=== PATIENT | female | born 1940 | race Caucasian/White ===

== ENCOUNTER 2019-08-13 06:27 | Observation (INO) ==
[~2019-08-13 06:27] MED LIST: Bacitracin 50,000 UNIT, Polymyxin B Sulfate 500,000 UNIT, Sodium Chloride IRRigation 1,... IR ONE
[2019-08-13] MEDS ORDERED: Ipratropium/Albuterol Neb 3 ML IH ONE (06:30)
[2019-08-13] MEDS ORDERED: Lidocaine -MPF 2% 2 ML VIAL ONE (07:04)
[2019-08-13] MEDS ORDERED: *HR* Succinylcholine 200 MG/10 ML VIAL IVP ONE (07:04)
[2019-08-13] MEDS ORDERED: Ondansetron 4 MG/2 ML VIAL ONE ×2 (07:04→12:00)
[2019-08-13] MEDS ORDERED: *HR* Rocuronium Bromide 50 MG/5 ML VIAL ONE (07:04)
[2019-08-13] MEDS ORDERED: *HR* FentaNYL (PF) 100 MCG/2 ML VIAL ONE ×3 (07:04→11:00)
[2019-08-13] MEDS ORDERED: *HR* Propofol 200 MG/20 ML VIAL IVP ONE (07:04)
[2019-08-13] MEDS ORDERED: *HR* Phenylephrine 10 MG/ML VIAL ONE (07:11)
[2019-08-13] MEDS ORDERED: Clindamycin 900 MG/50 ML 900 MG/50 ML IV.SOLN IVPB ONE (07:11)
[2019-08-13] MEDS ORDERED: Ringers Solution, Lactated 1,000 ML IVC SCH (07:15)
[2019-08-13] MEDS ORDERED: Ondansetron 4 MG/2 ML VIAL IVP PRN ×2 (07:24→14:55)
[2019-08-13] MEDS ORDERED: *HR* Promethazine 25 MG/ML VIAL IVP PRN (07:24)
[2019-08-13] MEDS ORDERED: Heparin 1,000 UNITS/500 mL 500 ML ONE (07:40)
[2019-08-13] MEDS ORDERED: Albumin Human 5% 12.5 GM/250 ML IV.SOLN ONE ×2 (09:57→11:40)
[2019-08-13] MEDS ORDERED: *HR* HYDROMORPHONE 2 MG/ML VIAL ONE (11:58)
[2019-08-13] MEDS ORDERED: Neostigmine Methylsulfate 3 MG/3 ML SYRINGE ONE (12:36)
[2019-08-13] MEDS ORDERED: *HR* Labetalol 20 MG/4 ML SYRINGE IVP ONE (12:36)
[2019-08-13] MEDS: *HR* HYDROmorphone (PF) 1 MG/ML SYRINGE IVP PRN ×2 (13:32→13:38)
[2019-08-13] MEDS ORDERED: Acetaminophen 325 MG TABLET PO PRN (14:55)
[2019-08-13] MEDS ORDERED: Vitamin E 200 UNIT (90MG) CAPSULE PO PRN (14:55)
[2019-08-13] MEDS ORDERED: Naloxone 0.4 MG/ML INJ IVP PRN (14:55)
[2019-08-13] MEDS: Ringers Solution, Lactated 1,000 ML IVC SCH (17:18)
[2019-08-13] MEDS: Ergocalciferol (VIT D2) 50,000 UNIT (1.25MG) CAP PO SCH (17:33)
[2019-08-13] MEDS: Budesonide/Formoterol 80/4.5 1 PUFF INH IH SCH (20:24)
[2019-08-13] MEDS: *HR* OxyCODONE Immed Rel 5 MG TABLET PO PRN (21:32)
[2019-08-13] MEDS: cloNIDine HCL 0.1 MG TABLET PO SCH (21:33)
[2019-08-13] MEDS: Latanoprost 2.5 ML BOTTLE BOTH EYES SCH (21:33)
[2019-08-14] MEDS ORDERED: Clindamycin 600 MG/50 ML 600 MG/50 ML IV.SOLN IVPB ONE (00:30)
[2019-08-14] MEDS: Ringers Solution, Lactated 1,000 ML IVC SCH (00:43)
[2019-08-14] MEDS: *HR* OxyCODONE Immed Rel 5 MG TABLET PO PRN ×4 (05:07→18:19)
[2019-08-14] MEDS: Budesonide/Formoterol 80/4.5 1 PUFF INH IH SCH ×2 (07:47→19:43)
[2019-08-14] MEDS ORDERED: Albuterol 2.5 MG/3 ML NEBULIZER IH PRN (08:11)
[2019-08-14 08:49] LABS: Basophils % 0.2 %; Eosinophils % 0.2 %; Hematocrit 32.8 % (35.3-44.9); Hemoglobin 10.9 g/dL (11.5-15.4); Immature Granulocytes % 0.4 % (0-4); Lymphocytes # 1.6 K/mcL (0.6-4.6); Lymphocytes % 16.7 %; Mean Corpuscular HGB Conc 33.2 g/dL (31.6-35.5); Mean Corpuscular Hemoglobin 31.2 pg (28.0-33.3); Mean Platelet Volume 9.8 fL (9.4-12.4); Monocytes % 10.7 %; Neutrophils # 6.7 K/mcL (1.6-8.9); Platelet Count 159 K/mcL (140-400); Red Blood Count 3.49 M/mcL (3.82-4.97); Red Cell Distribution Width 12.7 % (11.5-14.5); Segmented Neutrophils % 71.8 %; White Blood Count 9.3 K/mcL (4.3-11.1)
[2019-08-14 09:09] LABS: BUN/Creatinine Ratio 18 (6-26); Blood Urea Nitrogen 16 mg/dL (8-23); Calcium 9.1 mg/dL (8.6-10.3); Carbon Dioxide 26 mEq/L (23-29); Chloride 104 mEq/L (98-107); Glucose 135 mg/dL (70-105); Osmolality,Calculated 283 (280-300); Potassium 4.2 mEq/L (3.5-5.1); Sodium 135 mEq/L (136-145); eGFR For African Americans > 60 (> 60); eGFR For Non-African Americans > 60 (> 60)
[2019-08-14] MEDS: Valsartan 160 MG TABLET PO SCH (09:32)
[2019-08-14] MEDS: cloNIDine HCL 0.1 MG TABLET PO SCH ×2 (09:32→20:18)
[2019-08-14] MEDS: Aspirin Enteric Coated 81 MG Tablet PO SCH (09:32)
[2019-08-14] MEDS: Spironolactone 25 MG TABLET PO SCH (09:32)
[2019-08-14] MEDS: Loratadine 10 MG TABLET PO SCH (09:33)
[2019-08-14] MEDS: Albuterol 2.5 MG/3 ML NEBULIZER IH SCH ×4 (13:11→19:43)
[2019-08-14] MEDS: Acetaminophen 325 MG TABLET PO SCH (16:51)
[2019-08-14] MEDS: Latanoprost 2.5 ML BOTTLE BOTH EYES SCH (20:18)
[2019-08-15] MEDS: Albuterol 2.5 MG/3 ML NEBULIZER IH SCH ×7 (00:35→23:47)
[2019-08-15 01:08] LABS: Basophils % 0.2 %; Eosinophils % 0.2 %; Hematocrit 31.5 % (35.3-44.9); Hemoglobin 10.4 g/dL (11.5-15.4); Immature Granulocytes % 0.8 % (0-4); Lymphocytes # 2.6 K/mcL (0.6-4.6); Lymphocytes % 21.5 %; Mean Corpuscular Hemoglobin 31.4 pg (28.0-33.3); Mean Corpuscular Volume 95.2 fL (83.0-100.0); Mean Platelet Volume 9.5 fL (9.4-12.4); Monocytes # 1.4 K/mcL (0.0-1.3); Monocytes % 11.9 %; Neutrophils # 7.9 K/mcL (1.6-8.9); Platelet Count 148 K/mcL (140-400); Red Blood Count 3.31 M/mcL (3.82-4.97); Red Cell Distribution Width 12.5 % (11.5-14.5); Segmented Neutrophils % 65.4 %
[2019-08-15 01:26] LABS: BUN/Creatinine Ratio 18 (6-26); Blood Urea Nitrogen 18 mg/dL (8-23); Calcium 9.1 mg/dL (8.6-10.3); Carbon Dioxide 25 mEq/L (23-29); Chloride 103 mEq/L (98-107); Glucose 124 mg/dL (70-105); Osmolality,Calculated 277 (280-300); Platelet Estimate Normal (Normal); Potassium 4.3 mEq/L (3.5-5.1); Reactive Lymphocytes Present (Not Present); Sodium 132 mEq/L (136-145); eGFR For African Americans > 60 (> 60); eGFR For Non-African Americans 55 (> 60)
[2019-08-15] MEDS: Acetaminophen 325 MG TABLET PO SCH ×5 (03:02→23:50)
[2019-08-15] MEDS: Budesonide/Formoterol 80/4.5 1 PUFF INH IH SCH ×2 (07:35→19:55)
[2019-08-15] MEDS: Aspirin Enteric Coated 81 MG Tablet PO SCH (09:23)
[2019-08-15] MEDS: Valsartan 160 MG TABLET PO SCH (09:23)
[2019-08-15] MEDS: *HR* OxyCODONE Immed Rel 5 MG TABLET PO PRN (09:23)
[2019-08-15] MEDS: Loratadine 10 MG TABLET PO SCH (09:25)
[2019-08-15] MEDS: cloNIDine HCL 0.1 MG TABLET PO SCH (09:25)
[2019-08-15] MEDS: Spironolactone 25 MG TABLET PO SCH (09:25)
[2019-08-15] MEDS: Ringers Solution, Lactated 1,000 ML IVC SCH (09:57)
[2019-08-15] MEDS: 0.9 % Sodium Chloride 1,000 ML IV SCH ×2 (10:47→23:50)
[2019-08-15] MEDS: Metoclopramide 10 MG in 0.9 % Sodium Chloride 50 ML IVPB SCH ×3 (12:06→23:50)
[2019-08-15] MEDS ORDERED: cloNIDine HCL 0.1 MG TABLET PO SCH ×3 (14:33→21:00)
[2019-08-15 14:38] LABS: Bilirubin,Urine Negative (Negative); Blood,Urine Negative (Negative); Clarity,Urine Cloudy (Clear); Color,Urine Dark Yellow (Yellow); Glucose,Urine (UA) Normal (Normal); Ketones,Urine Trace mg/dL (Negative); Leukocyte Esterase,Urine Moderate (Negative); Nitrite,Urine Negative (Negative); Protein,Urine Trace mg/dL (Neg-Trace); Specific Gravity,Urine 1.019 (1.010-1.025); Urobilinogen,Urine Normal (Normal)
[2019-08-15 14:42] LABS: Hyaline Casts,Urine None Seen per lpf (None-Few); RBC,Urine 0-3 per hpf (0-3); Squamous Epithelial Cell,Urine Many per lpf (None-Few)
[2019-08-15] MEDS ORDERED: Spironolactone 25 MG TABLET PO SCH (14:42)
[2019-08-15] MEDS ORDERED: Valsartan 160 MG TABLET PO SCH (14:42)
[2019-08-15 14:59] LABS: Bacteria,Urine Many per hpf (None-Few)
[2019-08-15] MEDS: Sennosides/Docusate Sodium TABLET PO SCH (20:41)
[2019-08-15] MEDS: Latanoprost 2.5 ML BOTTLE BOTH EYES SCH (20:46)
[2019-08-16] MEDS: Ringers Solution, Lactated 1,000 ML IVC SCH (00:03)
[2019-08-16] MEDS: Albuterol 2.5 MG/3 ML NEBULIZER IH SCH ×2 (03:49→07:50)
[2019-08-16] MEDS: Acetaminophen 325 MG TABLET PO SCH ×4 (05:14→22:33)
[2019-08-16] MEDS: Metoclopramide 10 MG in 0.9 % Sodium Chloride 50 ML IVPB SCH (05:14)
[2019-08-16 06:34] LABS: Basophils % 0.1 %; Eosinophils # 0.1 K/mcL (0.0-0.6); Eosinophils % 1.6 %; Hematocrit 26.6 % (35.3-44.9); Immature Granulocytes % 0.8 % (0-4); Lymphocytes # 1.5 K/mcL (0.6-4.6); Lymphocytes % 17.2 %; Mean Corpuscular HGB Conc 33.1 g/dL (31.6-35.5); Mean Corpuscular Volume 96.7 fL (83.0-100.0); Mean Platelet Volume 10.1 fL (9.4-12.4); Monocytes # 1.6 K/mcL (0.0-1.3); Monocytes % 18.6 %; Neutrophils # 5.4 K/mcL (1.6-8.9); Platelet Count 143 K/mcL (140-400); Red Blood Count 2.75 M/mcL (3.82-4.97); Red Cell Distribution Width 12.8 % (11.5-14.5); Segmented Neutrophils % 61.7 %; White Blood Count 8.8 K/mcL (4.3-11.1)
[2019-08-16 06:41] LABS: Hemoglobin 8.8 g/dL (11.5-15.4)
[2019-08-16 07:05] LABS: Calcium 9.2 mg/dL (8.6-10.3); Magnesium 1.8 mg/dL (1.6-2.6); Phosphorous 2.5 mg/dL (2.7-4.5); Potassium 4.5 mEq/L (3.5-5.1)
[2019-08-16 07:06] LABS: Platelet Estimate Decreased (Normal)
[2019-08-16] MEDS: Budesonide/Formoterol 80/4.5 1 PUFF INH IH SCH ×2 (07:50→20:26)
[2019-08-16] MEDS ORDERED: D5% in Water 1,000 ML IVC PRN (07:51)
[2019-08-16] MEDS ORDERED: Dextrose Gel 15 GM/37.5 ML TUBE PO PRN ×2 (07:51)
[2019-08-16] MEDS ORDERED: *HR* Dextrose 50 % in Water (Syg) 50 ML SYRINGE IVP PRN (07:51)
[2019-08-16] MEDS ORDERED: Ringers Solution, Lactated 1,000 ML IVC SCH ×2 (08:45)
[2019-08-16] MEDS ORDERED: cloNIDine HCL 0.1 MG TABLET PO SCH (09:00)
[2019-08-16] MEDS ORDERED: levoFLOXacin 750 MG/150 ML 750 MG/150 ML BAG IVPB SCH (09:00)
[2019-08-16 09:41] LABS: Iron < 10 mcg/dL (50-170); Transferrin 149 mg/dL (203-362)
[2019-08-16] MEDS: Loratadine 10 MG TABLET PO SCH (09:50)
[2019-08-16] MEDS: Sennosides/Docusate Sodium TABLET PO SCH ×2 (09:50→22:32)
[2019-08-16] MEDS: Aspirin Enteric Coated 81 MG Tablet PO SCH (09:50)
[2019-08-16] MEDS: *HR* OxyCODONE Immed Rel 5 MG TABLET PO PRN (09:54)
[2019-08-16] MEDS ORDERED: Albuterol 2.5 MG/3 ML NEBULIZER IH PRN (10:05)
[2019-08-16 13:30] LABS: Adenovirus Not Detected (Not Detect); Bordetella Pertussis Not Detected (Not Detect); Chlamydophila pneumoniae Not Detected (Not Detect); Coronavirus 229E Not Detected (Not Detect); Coronavirus HKU1 Not Detected (Not Detect); Coronavirus NL63 Not Detected (Not Detect); Coronavirus OC43 Not Detected (Not Detect); Human Metapneumovirus Not Detected (Not Detect); Human Rhinovirus/Enterovirus Not Detected (Not Detect); Influenza A Subtype 2009 H1 Not Detected (Not Detect); Influenza B Not Detected (Not Detect); Mycoplasma pneumoniae Not Detected (Not Detect); Parainfluenza Virus 1 Not Detected (Not Detect); Parainfluenza Virus 2 Not Detected (Not Detect); Parainfluenza Virus 3 Not Detected (Not Detect); Parainfluenza Virus 4 Not Detected (Not Detect); Respiratory Syncytial Virus Not Detected (Not Detect)
[2019-08-16] MEDS: Insulin LISPRO 300 UNITS/3 ML VIAL SQ SCH ×2 (14:31→17:46)
[2019-08-16] MEDS: Ergocalciferol (VIT D2) 50,000 UNIT (1.25MG) CAP PO SCH (14:47)
[2019-08-16] MEDS: Latanoprost 2.5 ML BOTTLE BOTH EYES SCH (22:34)
[2019-08-17] MEDS: Insulin LISPRO 300 UNITS/3 ML VIAL SQ SCH ×2 (00:55→07:04)
[2019-08-17 05:27] LABS: Basophils % 0.5 %; Eosinophils # 0.2 K/mcL (0.0-0.6); Eosinophils % 2.1 %; Hemoglobin 8.9 g/dL (11.5-15.4); Immature Granulocytes % 1.6 % (0-4); Lymphocytes # 1.1 K/mcL (0.6-4.6); Lymphocytes % 13.9 %; Mean Corpuscular Hemoglobin 30.8 pg (28.0-33.3); Mean Corpuscular Volume 93.4 fL (83.0-100.0); Mean Platelet Volume 9.3 fL (9.4-12.4); Monocytes # 1.6 K/mcL (0.0-1.3); Monocytes % 20.2 %; Neutrophils # 4.9 K/mcL (1.6-8.9); Platelet Count 193 K/mcL (140-400); Red Blood Count 2.89 M/mcL (3.82-4.97); Red Cell Distribution Width 12.8 % (11.5-14.5); Segmented Neutrophils % 61.7 %; White Blood Count 7.9 K/mcL (4.3-11.1)
[2019-08-17 05:47] LABS: Platelet Estimate Normal (Normal)
[2019-08-17 05:48] LABS: BUN/Creatinine Ratio 23 (6-26); Blood Urea Nitrogen 18 mg/dL (8-23); Calcium 9.5 mg/dL (8.6-10.3); Carbon Dioxide 25 mEq/L (23-29); Chloride 107 mEq/L (98-107); Glucose 115 mg/dL (70-105); Magnesium 1.6 mg/dL (1.6-2.6); Osmolality,Calculated 289 (280-300); Phosphorous 2.1 mg/dL (2.7-4.5); Potassium 4.1 mEq/L (3.5-5.1); Sodium 138 mEq/L (136-145); eGFR For African Americans > 60 (> 60); eGFR For Non-African Americans > 60 (> 60)
[2019-08-17] MEDS: Budesonide/Formoterol 80/4.5 1 PUFF INH IH SCH (07:36)
[2019-08-17] MEDS: Acetaminophen 325 MG TABLET PO SCH (07:39)
[2019-08-17] MEDS ORDERED: Ringers Solution, Lactated 1,000 ML ONE (08:35)
[2019-08-17] MEDS: Aspirin Enteric Coated 81 MG Tablet PO SCH (08:44)
[2019-08-17] MEDS: *HR* OxyCODONE Immed Rel 5 MG TABLET PO PRN (08:44)
[2019-08-17] MEDS: Loratadine 10 MG TABLET PO SCH (08:45)
[2019-08-17] MEDS: Sennosides/Docusate Sodium TABLET PO SCH (08:45)
[2019-08-17 11:31] VITALS: BP 136/63
== END 2019-08-17 12:32 ==
LOC: 3NENU 06:27 → SAMDAY 06:27 → 3NENU 14:55 → SUATTDRO 08-15 10:23
PROVIDERS: ADMIT Orthopaedic Surgery Orthopaedic Surgery of the Spine; ATTEND Internal Medicine